=== PATIENT | male | born 1995 | race Caucasian/White ===

== ENCOUNTER 2018-05-11 06:48 | Emergency (ER) | payer OTHER ==
[~2018-05-11] VITALS: Ht 172.7 cm; Wt 89.6 kg
[2018-05-11 06:52] VITALS: BP 123/59; PULSE 75; RESP 18; Ht 172.7 cm; Wt 89.6 kg
[2018-05-11] MEDS ORDERED: CEPH-443 PO (07:15)
[2018-05-11] MEDS ORDERED: SULF1TAB31 PO (07:15)
--- NOTE | 2018-05-11 07:19 | ERD ---
ER Documentation Chief Complaint Chief Complaint ABSCESS @ PERINEAL AREA HPI 22-year-old male presents the emergency department with a painful bump underneath his scrotum. Patient states for the last 3 weeks, he has had a painful bump underneath his scrotum. Despite no treatment, this seems to be getting smaller, but continues to hurt. He denies fevers or chills. He denies discharge or drainage. He denies trauma. ROS All systems reviewed and are negative except as per history of present illness. Medications Home Meds Active Scripts Cephalexin* (Keflex*) 500 Mg Capsule, 500 MG PO QID for 10 Days, CAP Prov:MERCEDES,JAIDA 05/11/18 Sulfamethoxazole/Trimethoprim* (Bactrim Ds* Tablet) 1 Each Tablet, 1 TAB PO BID for 10 Days, TAB Prov:MERCEDES,JAIDA 05/11/18 Allergies Allergies: Coded Allergies: No Known Allergy (Unverified , 10/17/12) PMhx/Soc History of Surgery: No Anesthesia Reaction: No Hx Neurological Disorder: No Hx Respiratory Disorders: Yes (ASTHMA) Hx Cardiac Disorders: No Hx Psychiatric Problems: No Hx Miscellaneous Medical Probl: No Hx Alcohol Use: No Hx Substance Use: No Hx Tobacco Use: No Physical Exam Vitals Vital Signs Date Temp Pulse Resp B/P (MAP) Pulse Ox O2 O2 Flow FiO2 Time Delivery Rate 05/11/18 99.0 75 18 123/59 99 06:52 (80) Physical Exam General: well developed, well nourished, in no distress. Neuro: Normal speech, gait, balance : Normal uncircumcised male exam. In the perineal area there is a nickel sized painful red bump without obvious fluctuance. There is no surrounding cellulitis. There is no evidence of Gloria's gangrene. Procedures/MDM Patient was taken to a room, seen and examined Medical decision makin-year-old otherwise healthy nondiabetic male presents with a chronic peritoneal abscess. I had a conversation with the patient regarding antibiotics versus surgical drainage. At this time, given the chronic nature and his nontoxic appearance, and based on joint decision making, patient will be placed on antibiotics. He understands that if it is not improving with antibiotics he will require further diagnostic imaging and consideration of surgical drainage. At this current time, does not seem to mandate emergent surgical drainage in the trial of antibiotic seems appropriate. Departure Diagnosis: Primary Impression: Abscess Condition: Stable Patient Instructions: Lorena-Anal Abscess, Abx Only Additional Instructions: Please use the antibiotic as prescribed. You should be getting significant better over the next few days. If you are not, please return to the emergency department at which time we will need to do blood tests and a CT scan and consider surgical drainage. JAIDA LONG May 11, 2018 07:19
== END 2018-05-11 07:55 | disposition home or self-care (01) ==
LOC: FTE 06:48
DX: K65.1 Peritoneal abscess (principal); J45.909 Unspecified asthma, uncomplicated
CPT/HCPCS: 99283

== ENCOUNTER 2018-09-28 21:56 | Emergency (ER) | payer OTHER ==
[~2018-09-28] VITALS: Ht 170.2 cm; Wt 86.6 kg
[~2018-09-28 21:56] MED LIST: CEPH-443 PO; HC30CR25 TOP; HYDR-842 PO; SULF1TAB31 PO
[2018-09-28 22:11] VITALS: BP 135/79; PULSE 71; RESP 16; Ht 170.2 cm; Wt 86.6 kg
== END 2018-09-29 01:20 | disposition home or self-care (01) ==
LOC: FTE 21:56
DX: S80.862A Insect bite (nonvenomous), left lower leg, initial encounter (principal); S80.861A Insect bite (nonvenomous), right lower leg, initial encounter; J45.909 Unspecified asthma, uncomplicated; W57.XXXA Bitten or stung by nonvenomous insect and other nonvenomous arthropods, initial encounter; Y92.9 Unspecified place or not applicable
CPT/HCPCS: 99283